=== PATIENT | male | born 1980 | race Caucasian/White ===

== ENCOUNTER 2019-09-12 08:26 | Day surgery (SDC) | payer BC, OTHER ==
[~2019-09-12] VITALS: Ht 177.8 cm; Wt 97.5 kg
[~2019-09-12 08:26] MED LIST: IBUPROFEN 400400 M2 PO
[2019-09-12 09:32] VITALS: BP 145/92
--- NOTE | 2019-09-14 14:31 | O ---
[facility] [place] [address] OPERATIVE REPORT Name: ANDREW CARCAMO Room #: DEP [facility].#: [id number] Admission: 09/12/19 Attend Phys: Andrew Anaya MD Discharge: 09/12/19 Date of : 76 Report #: [id number] THIS REPORT FOR: //name// CC: RODRÍGUEZ physician/PCP Andrew Anaya DATE OF SERVICE: 09/12/2019 SERVICE: Orthopedics. FACILITY: [facility]. SURGEON: Andrew Anaya MD [employer]: Ju Lorenzo NP. INDICATION FOR [employer]: Extremity positioning, assistance with the arthroscope in the repair. PREOPERATIVE DIAGNOSES: 1. Right shoulder pain. 2. Right shoulder glenohumeral arthritis. 3. Right shoulder acromioclavicular joint arthrosis. 4. Right shoulder degenerative labral tear and loose body. 5. Right shoulder bursitis. 6. Right shoulder biceps tendinitis. POSTOPERATIVE DIAGNOSES: 1. Right shoulder pain. 2. Right shoulder glenohumeral arthritis. 3. Right shoulder acromioclavicular joint arthrosis. 4. Right shoulder degenerative labral tear and loose body. 5. Right shoulder bursitis. 6. Right shoulder biceps tendinitis. PROCEDURES: 1. Right shoulder extensive arthroscopic debridement with loose body removal. 2. Right shoulder subacromial decompression. 3. Right shoulder arthroscopic distal clavicle excision. 4. Right shoulder open subpectoral biceps tenodesis. COMPLICATIONS: None. DRAINS: None. SPECIMENS: 2 loose bodies, which were discarded. [facility] [address] [place] [address] OPERATIVE REPORT Name: ANDREW CARCAMO Room #: DEP [facility]#: [id number] Admission: 09/12/19 Attend Phys: Andrew Anaya MD Discharge: 09/12/19 Date of : 76 Report #: [id number] FINDINGS: 1. 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 2. Loose body within the glenohumeral joint as well as the second loose bodies within the bicipital groove, which were removed. 3. Peres [employer] Nephew Endobutton for unicortical fixation of the biceps tenodesis. HISTORY: The patient is a 39-year-old gentleman, who is active with weightlifting, who has significant right shoulder pain secondary to osteoarthritis as well as some secondary pain generators. We had discussion about treatment options. He is not of an age or activity level to benefit from arthroplasty at this point, so we discussed arthroscopic debridement as a temporizing procedure and to address his secondary pain generators. He was in favor of this approach and gave full informed consent. Risks, benefits, alternatives and indications for surgery were discussed with him. Risks include but not limited to pain, bleeding, infection, injury to nerves or blood vessels, persistent pain despite surgical intervention, progression of any arthritic changes, need for further surgery including arthroplasty at some point in the future as well as complications related to anesthesia such as stroke, heart attack, pulmonary complications, thromboembolic disease and . Despite these risks, the patient wished to proceed. PROCEDURE IN DETAIL: After the right upper extremity was correctly identified in preoperative holding area as the operative extremity, the patient was taken to the operating room where general anesthesia was induced without complication. He was padded appropriately. Prophylactic antibiotics were administered at appropriate time. He was seated in beach chair position, padded appropriately. Right arm was then prepped and draped in standard sterile fashion. Time-out procedure was performed. A standard posterior viewing portal was established in typical fashion. Diagnostic arthroscopy revealed grade 4 chondral changes of the glenohumeral joint on both the humerus and glenoid consistent with advanced arthritis. There was synovitis. There was degenerative fraying of the labrum and there was a loose articular cartilage where a shaver was used to perform an extensive debridement of the synovitis, the labral tearing and the chondromalacia. There was a loose body in the anterior inferior aspect of the glenohumeral joint, which was removed with a grasper and then a spinal needle was used to pin the biceps tendon in its anatomic position and then arthroscopic scissors were used to perform a biceps tenotomy for later tenodesis. The shaver was used to perform my anterior interval excision to eliminate any soft tissue sources of stiffness in the shoulder. The scope was then placed in subacromial space. He had thickened subacromial bursa and a thorough bursectomy was performed with a shaver until the rotator cuff could be visualized. This was healthy and [address] [address] OPERATIVE REPORT Name: ANDREW CARCAMO Room #: DEP [facility]#: [id number] Admission: 09/12/19 Attend Phys: Andrew Anaya MD Discharge: 09/12/19 Date of : 76 Report #: [id number] normal in appearance. There was no rotator cuff tear. The undersurface of the acromion was then exposed. There was a small inferior projecting osteophyte anteromedially, so posterior cutting block technique was used to perform an acromioplasty with the bur and then attention was turned towards the distal clavicle where an arthroscopic distal clavicle excision was performed with the bur taking care to ensure resection of the superior and posterior cortices while preserving the capsule. After this was completed, the bony debris was lavaged out of the shoulder. Attention was turned towards the biceps. One inch incision was then made adjacent to the axillary fold. Dissection was taken down in a subpectoral fashion down the anterior aspect of the humerus. The biceps tendon was visualized and it was marked for its anatomic position with a marking pen prior to removing the spinal needle and then the biceps was delivered out of the wound. A preoperative MRI demonstrated a large loose body that was entrapped within the bicipital groove and blunt dissection was performed and then the loose body was removed with blunt dissection. The tenosynovitis within the groove was then resected and the anterior aspect of the humerus and the bicipital groove was prepared a two-bleeding surface and then a 4.5 mm unicortical drill hole was created and the Peres and Nephew button was deployed in a unicortical fashion. A cinching suture technique was utilized to repair the biceps tendon to perform the tenodesis and then the tendon was sewn back upon itself for reinforcement. At this point, the wound was copiously irrigated and the skin was closed with 2-0 Vicryl followed by running subcuticular 3-0 Monocryl and Dermabond over the tenodesis incision. The portal sites were closed as well. Sterile dressing was applied followed by a sling. The patient was awakened from anesthesia and taken to recovery room in stable condition. There were no complications. All counts were recorded as correct. <ELECTRONICALLY SIGNED> By: Andrew Anyaa MD 09/14/19 1431 [id number] Andrew Anaya MD /lala
== END 2019-09-12 14:45 | disposition home or self-care (01) ==
LOC: OR 08:26 → TBA 08:26 → OR 10:50
DX: M25.511 Pain in right shoulder (principal); M19.011 Primary osteoarthritis, right shoulder; M24.111 Other articular cartilage disorders, right shoulder; M24.011 Loose body in right shoulder; M75.51 Bursitis of right shoulder; M75.21 Bicipital tendinitis, right shoulder; M65.811 Other synovitis and tenosynovitis, right shoulder; M94.211 Chondromalacia, right shoulder; Z98.890 Other specified postprocedural states; Z87.891 Personal history of nicotine dependence; Z88.0 Allergy status to penicillin; Z88.8 Allergy status to other drugs, medicaments and biological substances
CPT/HCPCS: 50010; 50101; 50172; 50386; 50417; 50733; 50950; 51038; 51445; 52313; 54118; 54170; 55430; 56524; 56527; 56617; 57103; 62110; 62900; 70005